=== PATIENT | female | born 1990 | race Caucasian/White ===

== ENCOUNTER 2023-02-12 16:00 | Emergency (ER) | payer MEDICAID ==
[2023-02-12 18:10] LABS: Appearance Cloudy (Clear); Bacteria Many /HPF (None Seen); Bilirubin Negative (Negative); Blood Small (Negative); Epithelial Cells None Seen /HPF (None Seen); Glucose, Urine Negative (Negative); Ketones Negative (Negative); Leukocyte Esterase Small (Negative); Nitrite Positive (Negative); Protein,Urine Dip 100 (Negative); RBC 0-2 /HPF (0-5); WBC 21-50 /HPF (0-5)
[2023-02-12 18:11] LABS: ADD URINE CULTURE? YES (NO)
[2023-02-12] MEDS ORDERED: Rocephin 1000 MG INJ IM ONE (18:27)
[2023-02-12] MEDS ORDERED: TYLENOL 325 MG PO STA (18:27)
[2023-02-12 18:29] LABS: Group A Strep NOT DETECTED (NEGATIVE)
[2023-02-12 18:41] LABS: INFLUENZA A NEGATIVE (NEGATIVE); INFLUENZA B NEGATIVE (NEGATIVE); RESPIRATORY SYNCTIAL VIRUS NEGATIVE (NEGATIVE); SARS-CoV-2 Xpert Express NEGATIVE (NEGATIVE)
[2023-02-12] MEDS ORDERED: TYLENOL 325 MG ONE (18:42)
[2023-02-12] MEDS ORDERED: Rocephin 1000 MG INJ ONE (18:42)
[2023-02-12] MEDS ORDERED: XYLOCAINE 1% HCL 20 ML MDV ONE (18:44)
[2023-02-12 19:02] VITALS: O2SAT 96
--- NOTE | 2023-02-12 19:02 | ERPHSYRPT ---
- History of Present Illness Time Seen by Provider: 02/12/23 18:07 Source: patient Exam Limitations: no limitations Patient Subjective Stated Complaint: Pt reports she has had chills/bodyaches/headaches x2 days. Has been rotating tylenol and ibuprofen. Triage Nursing Assessment: Pt alert and oriented x3. No apparent respiratory distress. Ambulated to ED cot without difficulty. Skin w/p/d. Physician History: 32 years old female presented in the ER with 2 days history of low-grade fever with body aches. Denies cough congestion or difficulty breathing. No abdominal pain nausea vomiting. Denies any urinary symptoms. No known sick contact. 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 Associated Symptoms: headache, muscle aches, No denies symptoms, No cough, No nausea/vomiting, No rhinorrhea, No shortness of breath, No stiff neck Allergies/Adverse Reactions: No Known Drug Allergies Allergy (Unverified 02/12/23 17:46) Home Medications: Fluoxetine HCl [Prozac] 15 mg PO DAILY 02/12/23 [History] Mirtazapine [Remeron] 7.5 mg PO DAILY 02/12/23 [History] Trazodone HCl 50 mg PO DAILY 02/12/23 [History] hydrOXYzine pamoate [Vistaril] 50 mg PO DAILY 02/12/23 [History] Hx Tetanus, Diphtheria Vaccination/Date Given: Yes Hx Influenza Vaccination/Date Given: No Hx Pneumococcal Vaccination/Date Given: No Travel Risk - International Travel Have you traveled outside of the country in past 3 weeks: No - Coronavirus Screening Are you exhibiting any of the following symptoms?: Yes Symptoms: Fever, Headaches/Body Aches/Fatigue Close contact with a COVID-19 positive Pt in past 14-21 Days: No - Vaccine Status Have you recieved a Covid-19 vaccination: Yes 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 - Review of Systems Constitutional: Fever, Chills, Fatigue, Weakness Eyes: No Symptoms Ears, Nose, & Throat: No Symptoms Respiratory: No Symptoms Cardiac: No Symptoms Abdominal/Gastrointestinal: No Symptoms Genitourinary Symptoms: No Symptoms Musculoskeletal: Myalgias Skin: No Symptoms Neurological: Headache Psychological: No Symptoms Endocrine: No Symptoms - Past Medical History Pertinent Past Medical History: Yes Neurological History: Migraines Cardiac History: No Pertinent History Respiratory History: No Pertinent History GI Medical History: Gallbladder Disease - Past Surgical History Past Surgical History: Yes Gastrointestinal: Cholecystectomy Other Surgical History: bone marrow biopsy - Social History Smoking Status: Current every day smoker Exposure to second hand smoke: Yes Drug Use: none Patient Lives Alone: No - Female History Hx Last Menstrual Period: 02/09/23 Hx Now: No - Nursing Vital Signs Nursing Vital Signs: Initial Vital Signs Temperature 100.9 F 02/12/23 17:39 Respiratory Rate 17 02/12/23 17:39 Pain Scale Pain Intensity 7 - Physical Exam General Appearance: no apparent distress, alert Eye Exam: PERRL/EOMI ENT Exam: normal ENT inspection, no apparent trauma, hearing grossly normal Neck Exam: normal inspection, non-tender, supple, full range of motion Respiratory Exam: normal breath sounds, lungs clear Cardiovascular/Chest Exam: normal heart sounds, regular rate/rhythm Gastrointestinal/Abdominal Exam: soft, non tender, no distention, no mass, no guarding, No tenderness Extremity Exam: non-tender, normal range of motion, normal inspection Neurologic Exam: alert, oriented x 3, cooperative, 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, normal mood/affect, sensation nml, No motor deficits Skin Exam: normal color SpO2 Interpretation: normal SpO2: 96 O2 Delivery: Room Air Ordered Tests: Active Orders 24 hr Category Date Time Status CULTURE,URINE Stat Lab 02/12/23 17:35 Received UA W/RFX UR CULTURE Stat Lab 02/12/23 17:35 Completed Medication Summary Discontinued Medications Generic Name Dose Route Start Last Admin Trade Name Tiffany PRN Reason Stop Dose Admin Acetaminophen 975 mg 02/12/23 18:27 02/12/23 18:45 Acetaminophen 325 Mg Tablet PO 02/12/23 18:28 975 mg STAT STA Administration Acetaminophen Confirm 02/12/23 18:42 Acetaminophen 325 Mg Tablet Administered 02/12/23 18:43 Dose 975 mg .ROUTE .STK-MED ONE Ceftriaxone Sodium 1,000 mg 02/12/23 18:27 02/12/23 18:45 Ceftriaxone Sodium 1000 Mg Inj Vial IM 02/12/23 18:28 1,000 mg STAT ONE Administration Ceftriaxone Sodium Confirm 02/12/23 18:42 Ceftriaxone Sodium 1000 Mg Inj Vial Administered 02/12/23 18:43 Dose 1,000 mg .ROUTE .STK-MED ONE Lidocaine HCl Confirm 02/12/23 18:44 Lidocaine Hcl 1% 20 Ml Mdv 20 Ml Ml Administered 02/12/23 18:45 Dose 3 ml .ROUTE .STK-MED ONE Lab/Rad Data: Laboratory Results 02/12/23 02/12/23 Range/Units 17:35 17:35 Urine Color Yellow (Yellow) Urine Appearance Cloudy A (Clear) Urine pH 6.0 (4.6-8.0) Ur Specific [place] 1.010 (1.005-1.030) Urine Protein 100 A (Negative) Urine Glucose (UA) Negative (Negative) mg/dL Urine Ketones Negative (Negative) Urine Blood Small A (Negative) Urine Nitrite Positive A (Negative) Urine Bilirubin Negative (Negative) Urine Urobilinogen 1.0 A (0.2) mg/dL Ur Leukocyte Esterase Small A (Negative) U Hyaline Cast (Auto) 11-20 (0-2) /LPF Urine Microscopic RBC 0-2 (0-5) /HPF Urine Microscopic WBC 21-50 A (0-5) /HPF Ur Epithelial Cells None Seen (None Seen) /HPF Urine Bacteria Many A (None Seen) /HPF Urine Culture Reflexed YES (NO) Influenza Type A Ag NEGATIVE (NEGATIVE) Influenza Type B Ag NEGATIVE (NEGATIVE) RSV (PCR) NEGATIVE (NEGATIVE) SARS-CoV-2 (PCR) NEGATIVE (NEGATIVE) Group A Strep Antibody NOT DETECTED (NEGATIVE) - Progress Progress: improved Progress Note: 02/12/23 18:59 32 years old is evaluated for fever chills, headache/body aches for couple of days, partial relief with [id number] medications. No other systemic symptoms. Patient has a negative strep flu RSV/COVID. Urinalysis is positive for nitrites and leukocyte esterase. Given an dose of Rocephin IM and oral Tylenol for fever. We will continue with Bactrim to go home and outpatient follow-up recommended. It is possible that she has a combination of viral syndrome causing nonspecific symptoms and does have UTI as well, does not have any abdominal/suprapubic/CVA tenderness. And patient has no UTI symptoms otherwise. Discussed signs symptoms of worsening needing return to ER which she seems understanding Medical Desision Making - Discussion of managment Reviewed:: Test results, Need for additional workup Agreed on:: Treatment plan, need for follow-up - Diagnostic Testing Diagnostic test were ordered, analyzed, and reviewed by me: Yes - Risk of complications The pt has a mod risk of morbidity or mortality based on: Need for prescription drug management - Departure Departure Disposition: Home Clinical Impression: Acute UTI, Viral syndrome Condition: Stable Critical Care Time: No Referrals: DOCTOR,NO FAMILY [Primary Care Provider] - Follow up/PCP as directed Instructions: Fever, Adult (DC) Additional Instructions: Take Tylenol/ibuprofen alternate for fever greater than 100.4 every 4 hour as needed. Follow-up with primary care for reevaluation. Return to ER for any worsening. Prescriptions: Smz/Tmp Ds Tablet [Bactrim Ds Tablet] 1 udtab PO BID #14 tablet
[2023-02-12 19:13] VITALS: BP 136/99; PULSE 100
== END 2023-02-12 19:13 | disposition home or self-care (01) ==
LOC: ED 16:00
DX: N39.0 Urinary tract infection, site not specified (principal); B34.9 Viral infection, unspecified; R50.9 Fever, unspecified; M79.10 Myalgia, unspecified site; Z79.899 Other long term (current) drug therapy; Z72.0 Tobacco use
CPT/HCPCS: 0241U; 81001; 87077; 87086; 87186; 87651; 96372; 99283; J0696; A9270-GY

== ENCOUNTER 2023-07-31 20:14 | Emergency (ER) | payer OTHER ==
[2023-07-31 20:23] VITALS: TEMP 97.5
--- NOTE | 2023-07-31 21:00 | ERPHSYRPT ---
- History of Present Illness Time Seen by Provider: 07/31/23 20:36 Source: patient Exam Limitations: no limitations Patient Subjective Stated Complaint: bilat lower ext discomfort with some swelling Triage Nursing Assessment: pt brought back in wheelchair, mom at bedside. Pt c/o bilat lower ext swelling which started yesterday. Pt has some trace edema to bilat lower ext, non-pitting, bilat pedal pulses present. Pt had pulmonary function test done today and pt got concerned and decided to come in because they told her the leg swelling could be due to CHF. Lungs slightly coarse to upper lobes ant. Heart tones reg. Physician History: Pt states she has had swollen legs and ankles for the past 2 days and cough & dyspnea for years. Pt denies chest pain, fever, chills, abdominal pain, vomiting. Allergies/Adverse Reactions: No Known Drug Allergies Allergy (Verified 07/31/23 20:37) Home Medications: Fluoxetine HCl [Prozac] 20 mg PO DAILY 02/12/23 [History] Trazodone HCl 50 mg [Desyrel 50 mg] 1 tab PO HS 07/31/23 [History] hydrOXYzine pamoate [Vistaril] 50 mg PO Q6HPRN PRN 07/31/23 [History] Hx Tetanus, Diphtheria Vaccination/Date Given: Yes Hx Influenza Vaccination/Date Given: No Hx Pneumococcal Vaccination/Date Given: No Immunizations Up to Date: No Travel Risk - International Travel Have you traveled outside of the country in past 3 weeks: No - Coronavirus Screening Are you exhibiting any of the following symptoms?: No Close contact with a COVID-19 positive Pt in past 14-21 Days: No - Vaccine Status Have you recieved a Covid-19 vaccination: Yes 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 - Review of Systems Constitutional: No Fever, No Chills Respiratory: Cough (FOR YEARS), Dyspnea (FOR YEARS) Cardiac: No Chest Pain Abdominal/Gastrointestinal: No Abdominal Pain Skin: No Rash Neurological: No Headache - Past Medical History Pertinent Past Medical History: Yes Neurological History: Migraines ENT History: No Pertinent History Cardiac History: High Cholesterol Respiratory History: Bronchitis, COPD Endocrine Medical History: No Pertinent History Musculoskeletal History: Fractures GI Medical History: Gallbladder Disease History: No Pertinent History Psycho-Social History: Depression Female Reproductive Disorders: Other Other Medical History: pre cancerous cervical cells. fx elbow - Past Surgical History Past Surgical History: Yes Neuro Surgical History: No Pertinent History Cardiac: No Pertinent History Respiratory: No Pertinent History Gastrointestinal: Cholecystectomy Female Surgical History: Other Other Surgical History: bone marrow biopsy, LEEP procedure - Social History Smoking Status: Current every day smoker How long have you smoked: 17 yrs Exposure to second hand smoke: Yes Drug Use: none Patient Lives Alone: No - Female History Hx Last Menstrual Period: 07/14/23 Hx Now: No - Nursing Vital Signs Nursing Vital Signs: Initial Vital Signs Temperature 97.5 F 07/31/23 20:20 Pulse Rate 96 H 07/31/23 20:20 Respiratory Rate 20 07/31/23 20:20 Blood Pressure 118/82 07/31/23 20:20 O2 Sat by Pulse Oximetry 97 07/31/23 20:20 Pain Scale Pain Intensity 2 - Physical Exam General Appearance: alert Eyes, Ears, Nose, Throat Exam: TMs normal, pharynx normal, moist mucous membranes Neck Exam: normal inspection Cardiovascular/Respiratory Exam: heart sounds normal, rhonchi (posterior bases), wheezing (posterior bases) Back Exam: normal inspection Hips Exam: bilateral: normal range of motion Legs Exam: bilateral leg: normal range of motion, swelling (mild) Knees Exam: bilateral knee: normal range of motion Ankle Exam: bilateral ankle: normal range of motion, swelling (mild) Foot Exam: bilateral foot: normal range of motion Neuro/Tendon Exam: normal sensation, normal motor functions Mental Status Exam: alert, cooperative Skin Exam: warm, dry SpO2 Interpretation: normal SpO2: 97 O2 Delivery: Room Air - Course Nursing assessment & vital signs reviewed: Yes EKG Interpreted by Me: RATE (91), Sinus Rhythm, NORMAL AXIS, NORMAL INTERVALS, Other (QTc = 481) - CT Exams Chest CT Interpretation: Tele-radiologist Report (No significant abnormality on CT- Chest.) - Radiology Ultrasound Exam Venous Lower Extremity Ultrasound: Other (manometer technician report: no DVT bilaterally) Ordered Tests: Active Orders 24 hr Category Date Time Status Payroll Secretary STAT Care 07/31/23 20:58 Active EKG-ER Only STAT Care 07/31/23 20:56 Active IV Insertion STAT Care 07/31/23 22:34 Active CHEST WITH CONTRAST [CT] Stat Exams 07/31/23 20:58 Completed VENOUS BILATERAL EXTREMITY [US] Stat Exams 07/31/23 20:53 Taken CBC W DIFF Stat Lab 07/31/23 21:05 Completed CMP Stat Lab 07/31/23 21:05 Completed HCG QUALITATIVE, SERUM Stat Lab 07/31/23 21:05 Completed MAGNESIUM Stat Lab 07/31/23 21:05 Completed NT PRO BNPII Stat Lab 07/31/23 21:05 Completed TROPONIN Q4H Lab 07/31/23 21:05 Completed TROPONIN Q4H Lab 08/01/23 01:00 Ordered TROPONIN Q4H Lab 08/01/23 05:00 Ordered Respiratory Therapy Assessment DAILY RT 07/31/23 21:33 Active Medication Summary Discontinued Medications Generic Name Dose Route Start Last Admin Trade Name Freq PRN Reason Stop Dose Admin Albuterol Sulfate 2.5 mg 07/31/23 21:01 07/31/23 22:02 Albuterol Sulfate 2.5 Mg/3 Ml Neb IH 07/31/23 21:02 2.5 mg STAT ONE Administration Albuterol Sulfate Confirm 07/31/23 21:34 Albuterol Sulfate 2.5 Mg/3 Ml Neb Administered 07/31/23 21:35 Dose 2.5 mg IH .STK-MED ONE Lab/Rad Data: Laboratory Result Diagrams 07/31/23 21:05 07/31/23 21:05 Laboratory Results 07/31/23 07/31/23 07/31/23 Range/Units 21:05 21:05 21:05 WBC (4.0-10.5) x10^3/uL RBC (4.1-5.4) x10^6/uL Hgb (12.0-16.0) g/dL Hct (35-47) % MCV (78-100) fL MCH (26-32) pg MCHC (32-36) g/dL RDW (11.5-14.0) % Plt Count (150-450) x10^3/uL MPV (7.5-11.0) fL Gran % (36.0-66.0) % Immature Gran % (Auto) (0.00-0.4) % Nucleat RBC Rel Count (0.00-0.1) % Eos # (Auto) (0-0.5) x10^3/uL Immature Gran # (Auto) (0.00-0.03) x10^3u/L Absolute Lymphs (auto) (1.0-4.6) x10^3/uL Absolute Monos (auto) (0.0-1.3) x10^3/uL Absolute Nucleated RBC (0.00-0.01) x10^3u/L Lymphocytes % (24.0-44.0) % Monocytes % (0.0-12.0) % Eosinophils % (0.00-5.0) % Basophils % (0.0-0.4) % Absolute Granulocytes (1.4-6.9) x10^3/uL Basophils # (0-0.4) x10^3/uL Sodium 136 L (137-145) mmol/L Potassium 3.6 (3.5-5.1) mmol/L Chloride 104 (98-107) mmol/L Carbon Dioxide 22 (22-30) mmol/L Anion Gap 13.4 (5-15) MEQ/L BUN 6 L (7-17) mg/dL Creatinine 0.67 (0.52-1.04) mg/dL Estimated GFR 120.5 ML/MIN Glucose 123 H (74-106) mg/dL Calcium 8.5 (8.4-10.2) mg/dL Magnesium 2.2 (1.6-2.3) mg/dL Total Bilirubin 0.20 (0.2-1.3) mg/dL AST 47 H (14-36) U/L ALT 46 H (0-35) U/L Alkaline Phosphatase 80 (38-126) U/L Troponin I < 0.012 (0.000-0.034) ng/mL NT-Pro-B Natriuret Pep 203 (<300) pg/mL Serum Total Protein 5.5 L (6.3-8.2) g/dL Albumin 3.1 L (3.5-5.0) g/dL Serum HCG, Qual NEGATIVE (NEGATIVE) 07/31/23 Range/Units 21:05 WBC 7.8 (4.0-10.5) x10^3/uL RBC 4.56 (4.1-5.4) x10^6/uL Hgb 12.5 (12.0-16.0) g/dL Hct 39.8 (35-47) % MCV 87.3 (78-100) fL MCH 27.4 (26-32) pg MCHC 31.4 L (32-36) g/dL RDW 13.2 (11.5-14.0) % Plt Count 314 (150-450) x10^3/uL MPV 9.2 (7.5-11.0) fL Gran % 48.4 (36.0-66.0) % Immature Gran % (Auto) 0.3 (0.00-0.4) % Nucleat RBC Rel Count 0.0 (0.00-0.1) % Eos # (Auto) 0.11 (0-0.5) x10^3/uL Immature Gran # (Auto) 0.02 (0.00-0.03) x10^3u/L Absolute Lymphs (auto) 3.29 (1.0-4.6) x10^3/uL Absolute Monos (auto) 0.56 (0.0-1.3) x10^3/uL Absolute Nucleated RBC 0.00 (0.00-0.01) x10^3u/L Lymphocytes % 42.2 (24.0-44.0) % Monocytes % 7.2 (0.0-12.0) % Eosinophils % 1.4 (0.00-5.0) % Basophils % 0.5 (0.0-0.4) % Absolute Granulocytes 3.77 (1.4-6.9) x10^3/uL Basophils # 0.04 (0-0.4) x10^3/uL Sodium (137-145) mmol/L Potassium (3.5-5.1) mmol/L Chloride (98-107) mmol/L Carbon Dioxide (22-30) mmol/L Anion Gap (5-15) MEQ/L BUN (7-17) mg/dL Creatinine (0.52-1.04) mg/dL Estimated GFR ML/MIN Glucose (74-106) mg/dL Calcium (8.4-10.2) mg/dL Magnesium (1.6-2.3) mg/dL Total Bilirubin (0.2-1.3) mg/dL AST (14-36) U/L ALT (0-35) U/L Alkaline Phosphatase (38-126) U/L Troponin I (0.000-0.034) ng/mL NT-Pro-B Natriuret Pep (<300) pg/mL Serum Total Protein (6.3-8.2) g/dL Albumin (3.5-5.0) g/dL Serum HCG, Qual (NEGATIVE) - Progress Progress: unchanged Counseled pt/family regarding: lab results, diagnosis, rad results Medical Desision Making - Diagnostic Testing Diagnostic test were ordered, analyzed, and reviewed by me: Yes Radiological Interpretation: Discussed w/ radiologist - Departure Departure Disposition: Home Clinical Impression: dependent edema of legs, Dyspnea, Bronchitis Condition: Stable Critical Care Time: No Referrals: JESE IRIZARRY FNP [Primary Care Provider] - Follow up/PCP as directed Instructions: Dependent Edema (DC), Acute Bronchitis, Adult (DC) Additional Instructions: Follow up with private doctor tomorrow. Forms: Work/School Release Form Prescriptions: Azithromycin 250 mg [Zithromax 250 MG TABLET] 250 mg PO ZPACK #6 tablet
[2023-07-31] MEDS ORDERED: PROVENTIL 2.5 MG/3 ML NEB IH ONE ×2 (21:01→21:34)
[2023-07-31 21:11] LABS: Absolute Neutrophil Ct (ANC) 3.77 x10^3/uL (1.4-6.9); BASOPHIL % 0.5 % (0.0-0.4); Basophil (Absolute #) 0.04 x10^3/uL (0-0.4); Eosinophil % 1.4 % (0.00-5.0); Eosinophil (Absolute #) 0.11 x10^3/uL (0-0.5); Hematocrit 39.8 % (35-47); Hemoglobin 12.5 g/dL (12.0-16.0); IMMATURE GRAN # 0.02 x10^3u/L (0.00-0.03); IMMATURE GRAN % 0.3 % (0.00-0.4); Lymphocyte (Absolute #) 3.29 x10^3/uL (1.0-4.6); Lymphocytes % 42.2 % (24.0-44.0); Mean Cell Volume 87.3 fL (78-100); Mean Corpuscular Hemoglobin 27.4 pg (26-32); Mean Corpuscular Hgb Concent. 31.4 g/dL (32-36); Mean Platelet Volume 9.2 fL (7.5-11.0); Monocyte (Absolute #) 0.56 x10^3/uL (0.0-1.3); Monocytes % 7.2 % (0.0-12.0); Neutrophil % 48.4 % (36.0-66.0); Platelet Count 314 x10^3/uL (150-450); Red Blood Count 4.56 x10^6/uL (4.1-5.4); Red Cell Distribution Width 13.2 % (11.5-14.0); White Blood Count 7.8 x10^3/uL (4.0-10.5)
[2023-07-31 21:26] LABS: HCG SERUM TEST NEGATIVE (NEGATIVE)
[2023-07-31 21:38] LABS: ALBUMIN 3.1 g/dL (3.5-5.0); ANION GAP 13.4 MEQ/L (5-15); BILIRUBIN,TOTAL 0.2 mg/dL (0.2-1.3); Calcium 8.5 mg/dL (8.4-10.2); Creatinine 1 0.67 mg/dL (0.52-1.04); EST GLOMERULAR FILTRATION RATE 120.5 ML/MIN; MAGNESIUM 2.2 mg/dL (1.6-2.3); Potassium 3.6 mmol/L (3.5-5.1); Total Protein 5.5 g/dL (6.3-8.2)
[2023-07-31 23:08] VITALS: BP 143/89; PULSE 100; RESP 21
--- NOTE | 2023-07-31 23:24 | XRAY ---
CLINICAL HISTORY:SOA r/o PE COMPARISON:None TECHNIQUE:Contiguous 3.[address] images of the chest were acquired with contrast. Coronal and sagittal reconstructions were obtained. FINDINGS: The scanned pulmonary parenchyma shows no definite consolidative lesions. No free or encysted pleural effusion. Heart size is normal, and there is no pericardial effusion. There is no contrast in the pulmonary arteries, thus they cannot be evaluated for thrombosis. No pathologically enlarged mediastinal, hilar or axillary lymph node identified. The thoracic spine appears normal. There is no definite mass lesion in the chest wall. Scanned upper abdomen is unremarkable. IMPRESSION: No significant abnormality in CT chest Electronically Signed by: Ida Echols MD. (07/31/2023 22:22:50 DICTATING MACHINE TYPIST)
[2023-07-31] MEDS ORDERED: Zithromax 250 MG TABLET PO ONE (23:34)
[2023-07-31 23:36] VITALS: O2SAT 97
[2023-07-31] MEDS ORDERED: Zithromax 250 MG TABLET ONE (23:37)
--- NOTE | 2023-08-01 08:54 | XRAY ---
Indication: Bilateral leg swelling. Two-dimensional sonogram and color Doppler imaging of the major venous vessels of the left and right leg performed. Comparison: None No thrombus seen in the examined deep venous vessels of the left and right leg including greater saphenous vein. Veins demonstrate normal compressibility. Venous waveforms are normal with and without augmentation. Impression: Left and right legs negative for DVT. Comment: Preliminary report was given.
== END 2023-07-31 23:43 | disposition home or self-care (01) ==
LOC: ED 20:14
DX: R60.0 Localized edema (principal); R06.00 Dyspnea, unspecified; J40 Bronchitis, not specified as acute or chronic; R05.3 Chronic cough; E78.5 Hyperlipidemia, unspecified; Z79.899 Other long term (current) drug therapy; Z72.0 Tobacco use
CPT/HCPCS: 36000; 36415; 71260; 80053; 83735; 83880; 84484; 84703; 85025; 93005; 93041; 93970; 94640; 99284; J7609; A9270-GY

== ENCOUNTER 2023-10-28 05:38 | Emergency (ER) | payer OTHER ==
--- NOTE | 2023-10-28 06:13 | ERPHSYRPT ---
- History of Present Illness Source: family Hx Tetanus, Diphtheria Vaccination/Date Given: Yes Hx Influenza Vaccination/Date Given: No Hx Pneumococcal Vaccination/Date Given: No <STACY MAYERS - Last Filed: 10/28/23 07:50> - History of Present Illness Source: patient, family Exam Limitations: clinical condition Timing/Duration: today Severity of Symptoms-Max: moderate Severity of Symptoms-Current: moderate Context related to: living circumstances Suicidal thoughts: accidental, ingestion Associated Symptoms: depressed Previous symptoms: different symptoms, recently treated <OFE KAHN - Last Filed: 10/28/23 09:02> - History of Present Illness Time Seen by Provider: 10/28/23 06:13 Physician History: 33 years old female with past medical history of depression, insomnia. The patient is brought by her girlfriend to the emergency room because the patient accidentally overdosed on Wellbutrin tablets, 150 extended release about 15 to 20 tablets. The patient states that this medication was prescribed for her a month ago for her depression. She only used it for 2 weeks and then she quit taking it. This morning she woke up to take her regular medications and then accidentally she took 15 to 20 tablets of Wellbutrin. Both the patient and her girlfriend denies any harm/suicidal action. Her girlfriend called poison control and they were advised to come to the emergency room. At present the patient is having difficulty finding her words she has slurred and stuttering speech. It takes her a while to come out with a word. (STACY MAYERS) Risks/benefits of testing CBC, HCG, Acepo, ASA, ETOH, IVF Tx Ativan , Transfer to definitive care, all discussed with pt and significant other and they wish to proceed. Results discussed with Pt and signif. Other. (OFE KAHN) Allergies/Adverse Reactions: No Known Drug Allergies Allergy (Verified 10/28/23 06:16) Home Medications: Fluoxetine HCl [Prozac] 20 mg PO DAILY 02/12/23 [History] hydrOXYzine pamoate [Vistaril] 50 mg PO Q6HPRN PRN 07/31/23 [History] Omeprazole 20 mg PO DAILY 10/28/23 [History] Travel Risk - Vaccine Status Have you recieved a Covid-19 vaccination: Yes [employer]: [employer] - Vaccination Dates Date of 2cond Vaccination (if applicable): . <TIMO MAYERSCHELSIE - Last Filed: 10/28/23 07:50> - Past Medical History Pertinent Past Medical History: Yes Neurological History: Migraines ENT History: No Pertinent History Cardiac History: High Cholesterol Respiratory History: Bronchitis, COPD Endocrine Medical History: No Pertinent History Musculoskeletal History: Fractures GI Medical History: Gallbladder Disease History: No Pertinent History Psycho-Social History: Depression Female Reproductive Disorders: Other Other Medical History: pre cancerous cervical cells. fx elbow - Past Surgical History Past Surgical History: Yes Neuro Surgical History: No Pertinent History Cardiac: No Pertinent History Respiratory: No Pertinent History Gastrointestinal: Cholecystectomy Female Surgical History: Other Other Surgical History: bone marrow biopsy, LEEP procedure - Social History Smoking Status: Current every day smoker How long have you smoked: 17 yrs Exposure to second hand smoke: Yes Drug Use: none Patient Lives Alone: No <TEVINSheSOUMYALAKE - Last Filed: 10/28/23 07:50> - Past Surgical History Genitourinary: No Pertinent History Musculoskeletal: No Pertinent History - Female History Hx Now: No <OFE KAHN - Last Filed: 10/28/23 09:02> - Review of Systems Constitutional: No Fever, No Chills Eyes: No Symptoms Ears, Nose, & Throat: No Symptoms Respiratory: No Cough, No Dyspnea Cardiac: No Chest Pain, No Edema, No Syncope Abdominal/Gastrointestinal: No Abdominal Pain, No Nausea, No Vomiting, No Diarrhea Genitourinary Symptoms: No Dysuria Musculoskeletal: No Back Pain, No Neck Pain Skin: No Rash Neurological: No Dizziness, No Focal Weakness, No Sensory Changes Psychological: No Symptoms, Anxiety, Other (Per patient she accidentally overdosed on Wellbutrin 150 mg extended release x 15 to 20 tablets.) Endocrine: No Symptoms All Other Systems: Reviewed and Negative <TEVINSheSOUMYALAKE - Last Filed: 10/28/23 07:50> - Physical Exam General Appearance: no apparent distress Eyes, Ears, Nose, Throat Exam: normal ENT inspection, moist mucous membranes Neck Exam: normal inspection, non-tender, supple Respiratory Exam: normal breath sounds, lungs clear, No respiratory distress Cardiovascular Exam: regular rate/rhythm, No edema Gastrointestinal/Abdominal Exam: soft, No tenderness, No distention Extremities Exam: normal inspection, normal range of motion, No evidence of injury, No edema Current Suicidality: denies suicide plan Neurological Exam: 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, 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, 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, oriented x 3, depressed affect Appearance: appropriate appearance Behavior/Eye Contact/Speech: alert & cooperative, good eye contact, decreased rate of speech (The patient has a slurred, stuttering speech.) Thoughts/Hallucinations: no apparent hallucination Skin Exam: normal color, warm, dry, No rash <STACY MAYERS - Last Filed: 10/28/23 07:50> - Physical Exam Respiratory Exam: airway intact Peripheral Pulses: carotid (R): 2+, carotid (L): 2+, femoral (R): 2+, femoral (L): 2+, dorsalis-pedis (R): 2+, dorsalis-pedis (L): 2+ Current Suicidality: denies suicide plan Neurological Exam: depressed affect SpO2 Interpretation: normal SpO2: 99 O2 Delivery: Room Air <OFE KAHN - Last Filed: 10/28/23 09:02> - Nursing Vital Signs Nursing Vital Signs: Initial Vital Signs Temperature 98.5 F 10/28/23 05:48 Pulse Rate 98 H 10/28/23 05:48 Respiratory Rate 18 10/28/23 05:48 Blood Pressure 151/112 10/28/23 05:48 O2 Sat by Pulse Oximetry 99 10/28/23 05:48 Pain Scale Pain Intensity 4 - Course EKG Interpreted by Me: RATE (94), Sinus Rhythm, Other (As needed Tylenol 236, QT interval 381, borderline prolonged QTc 476.) <STACY MAYERS - Last Filed: 10/28/23 07:50> - Course Nursing assessment & vital signs reviewed: Yes EKG Interpreted by Me: prolonged QT interval, Non-specific ST Changes <OFE KAHN - Last Filed: 10/28/23 09:02> Ordered Tests: Active Orders 24 hr Category Date Time Status Clean Catch Urine Specimen STAT Care 10/28/23 06:20 Active EKG-ER Only STAT Care 10/28/23 06:20 Active IV Insertion STAT Care 10/28/23 06:03 Active ACETAMINOPHEN Stat Lab 10/28/23 06:10 Completed CBC W DIFF Stat Lab 10/28/23 06:10 Completed CK-Creatinine Phosphokinase Stat Lab 10/28/23 06:10 Completed CMP Stat Lab 10/28/23 06:10 Completed ETHYL ALCOHOL Stat Lab 10/28/23 06:10 Completed HCG QUALITATIVE, SERUM Stat Lab 10/28/23 06:10 Completed MAGNESIUM Stat Lab 10/28/23 06:10 Completed SALICYLATE Stat Lab 10/28/23 06:10 Completed Urine Triage Profile Stat Lab 10/28/23 07:13 Completed Medication Summary Generic Name Dose Route Start Last Admin Trade Name Freq PRN Reason Stop Dose Admin Sodium Chloride 1,000 mls @ 500 mls/hr 10/28/23 07:06 10/28/23 08:56 Sodium Chloride 0.9% 1000 Ml IV 10/28/23 09:05 Infused .Q2H STA Infusion Discontinued Medications Generic Name Dose Route Start Last Admin Trade Name Freq PRN Reason Stop Dose Admin Sodium Chloride Confirm 10/28/23 06:26 Sodium Chloride 0.9% 1000 Ml Administered 10/28/23 06:27 Dose 1,000 mls @ ud .ROUTE .STK-MED ONE Lorazepam Confirm 10/28/23 06:26 Lorazepam 2 Mg/1 Ml 2 Mg Vial Administered 10/28/23 06:27 Dose 2 mg .ROUTE .STK-MED ONE Lorazepam 2 mg 10/28/23 07:06 10/28/23 06:32 Lorazepam 2 Mg/1 Ml 2 Mg Vial IV 10/28/23 07:07 2 mg STAT ONE Administration Lorazepam 1 mg 10/28/23 07:30 10/28/23 07:33 Lorazepam 1 Mg Tablet PO 10/28/23 07:31 1 mg STAT ONE Administration Lorazepam Confirm 10/28/23 07:31 Lorazepam 1 Mg Tablet Administered 10/28/23 07:32 Dose 1 mg .ROUTE .STK-MED ONE Lab/Rad Data: Laboratory Result Diagrams 10/28/23 06:10 10/28/23 06:10 Laboratory Results 10/28/23 10/28/23 10/28/23 Range/Units 07:13 06:10 06:10 WBC (4.0-10.5) x10^3/uL RBC (4.1-5.4) x10^6/uL Hgb (12.0-16.0) g/dL Hct (35-47) % MCV (78-100) fL MCH (26-32) pg MCHC (32-36) g/dL RDW (11.5-14.0) % Plt Count (150-450) x10^3/uL MPV (7.5-11.0) fL Gran % (36.0-66.0) % Immature Gran % (Auto) (0.00-0.4) % Nucleat RBC Rel Count (0.00-0.1) % Eos # (Auto) (0-0.5) x10^3/uL Immature Gran # (Auto) (0.00-0.03) x10^3u/L Absolute Lymphs (auto) (1.0-4.6) x10^3/uL Absolute Monos (auto) (0.0-1.3) x10^3/uL Absolute Nucleated RBC (0.00-0.01) x10^3u/L Lymphocytes % (24.0-44.0) % Monocytes % (0.0-12.0) % Eosinophils % (0.00-5.0) % Basophils % (0.0-0.4) % Absolute Granulocytes (1.4-6.9) x10^3/uL Basophils # (0-0.4) x10^3/uL Sodium 135 L (137-145) mmol/L Potassium 3.9 (3.5-5.1) mmol/L Chloride 103 (98-107) mmol/L Carbon Dioxide 28 (22-30) mmol/L Anion Gap 7.6 (5-15) MEQ/L BUN 3 L (7-17) mg/dL Creatinine 0.70 (0.52-1.04) mg/dL Estimated GFR 118.5 ML/MIN Glucose 99 (74-106) mg/dL Calcium 9.6 (8.4-10.2) mg/dL Magnesium 2.2 (1.6-2.3) mg/dL Total Bilirubin 0.50 (0.2-1.3) mg/dL AST 44 H (14-36) U/L ALT 62 H (0-35) U/L Alkaline Phosphatase 72 (38-126) U/L Creatine Kinase 80 (30-135) U/L Serum Total Protein 6.9 (6.3-8.2) g/dL Albumin 4.0 (3.5-5.0) g/dL Serum HCG, Qual NEGATIVE (NEGATIVE) Salicylates < 1.0 L (2-20) mg/dL Urine Opiates Level NEGATIVE (NEGATIVE) Ur Methadone NEGATIVE (NEGATIVE) Acetaminophen < 10 L (10-30) ug/ml Urine Barbiturates NEGATIVE (NEGATIVE) Ur Phencyclidine (PCP) NEGATIVE (NEGATIVE) Urine Amphetamine NEGATIVE (NEGATIVE) U Benzodiazepine Level NEGATIVE (NEGATIVE) Urine Cocaine NEGATIVE (NEGATIVE) Urine Marijuana (THC) NEGATIVE (NEGATIVE) Ethyl Alcohol < 10 (0-10) mg/dL 10/28/23 Range/Units 06:10 WBC 9.6 (4.0-10.5) x10^3/uL RBC 5.64 H (4.1-5.4) x10^6/uL Hgb 15.3 (12.0-16.0) g/dL Hct 46.7 (35-47) % MCV 82.8 (78-100) fL MCH 27.1 (26-32) pg MCHC 32.8 (32-36) g/dL RDW 13.0 (11.5-14.0) % Plt Count 397 (150-450) x10^3/uL MPV 9.2 (7.5-11.0) fL Gran % 57.0 (36.0-66.0) % Immature Gran % (Auto) 0.3 (0.00-0.4) % Nucleat RBC Rel Count 0.0 (0.00-0.1) % Eos # (Auto) 0.11 (0-0.5) x10^3/uL Immature Gran # (Auto) 0.03 (0.00-0.03) x10^3u/L Absolute Lymphs (auto) 3.42 (1.0-4.6) x10^3/uL Absolute Monos (auto) 0.54 (0.0-1.3) x10^3/uL Absolute Nucleated RBC 0.00 (0.00-0.01) x10^3u/L Lymphocytes % 35.6 (24.0-44.0) % Monocytes % 5.6 (0.0-12.0) % Eosinophils % 1.1 (0.00-5.0) % Basophils % 0.4 (0.0-0.4) % Absolute Granulocytes 5.48 (1.4-6.9) x10^3/uL Basophils # 0.04 (0-0.4) x10^3/uL Sodium (137-145) mmol/L Potassium (3.5-5.1) mmol/L Chloride (98-107) mmol/L Carbon Dioxide (22-30) mmol/L Anion Gap (5-15) MEQ/L BUN (7-17) mg/dL Creatinine (0.52-1.04) mg/dL Estimated GFR ML/MIN Glucose (74-106) mg/dL Calcium (8.4-10.2) mg/dL Magnesium (1.6-2.3) mg/dL Total Bilirubin (0.2-1.3) mg/dL AST (14-36) U/L ALT (0-35) U/L Alkaline Phosphatase (38-126) U/L Creatine Kinase (30-135) U/L Serum Total Protein (6.3-8.2) g/dL Albumin (3.5-5.0) g/dL Serum HCG, Qual (NEGATIVE) Salicylates (2-20) mg/dL Urine Opiates Level (NEGATIVE) Ur Methadone (NEGATIVE) Acetaminophen (10-30) ug/ml Urine Barbiturates (NEGATIVE) Ur Phencyclidine (PCP) (NEGATIVE) Urine Amphetamine (NEGATIVE) U Benzodiazepine Level (NEGATIVE) Urine Cocaine (NEGATIVE) Urine Marijuana (THC) (NEGATIVE) Ethyl Alcohol (0-10) mg/dL <STACY MAYERS - Last Filed: 10/28/23 07:50> - Progress Progress: improved, re-examined Discussed with Dr.: Other (this was discussed with Dr. Alford at [facility] and with the insensivist at [place] who accepted , but awaiting bed. THere was also consultation with [facility]) Counseled pt/family regarding: lab results, diagnosis, need for follow-up, rad results <OFE KAHN - Last Filed: 10/28/23 09:02> - Progress Progress Note: 10/28/23 06:20 6:05 AM 33 years old female who has past medical history of depression, insomnia. The patient is brought by her girlfriend to the emergency room because she accidentally overdosed on Wellbutrin, 150 mg extended release. The patient was prescribed this medication a month ago she only took it for 2 weeks. This morning she woke up she tried to get her oral medications when she accidentally grabbed 15 to 20 tablets of her Wellbutrin and took them?. The patient denies harming herself or attempting suicide by overdosing on Wellbutrin. Her girlfriend called poison control and they were advised to come to the emergency room At present her speech is affected is kind of slurred stuttering speech. Emergency room course and medical decision making: Nurses called the poison control they fax us some treatment guidelines. If the patient gets seizures agitation tremor tachycardia should be treated with a MARIAA a agonist. They recommend lorazepam 1 to 4 mg IV, phenobarbital to 2.5 to 20 mg/kg IV anticipating respiratory support and or propofol loading dose 1 to 2 mg/kg followed by 20 mcg/kg/min and anticipating respiratory support 2. If the patient develops tachycardia and or agitation she should be treated with IV lorazepam, phenobarbital. At present the patient's heart rate is ranging 1 12-1 20 on the monitor she will be given Ativan 2 mg IV. Will also start IV fluid. Will check CBC, CMP, urine drug screen, alcohol level, both Tylenol and aspirin levels. Check CK and magnesium. The patient's EKG revealed a sinus rhythm at a rate of 94 bpm borderline prolon ged QT interval at 476. 10/28/2023 6:45 The case is discussed with Dr. Alford, the ER physician at [facility] in [place], they do not have the ECMO capabilities at their facility, his recommendation is finding in the workplace with ECMO Abilities. 10/28/23 07:30 The case is discussed with the singing waiter or waitress at , Dr. Huston, the patient has been accepted, but they do not have beds at present. The patient will be on the waiting list, and will call us as soon as bed is available. 10/28/23 07:43 The case will be endorsed to Dr. Kahn at the change of shift for further disposition and management. (STACY MAYERS) 10/28/23 08:05 Pt. care is being taken over at change of shift from Dr. Mayers after discussion of pending transfer , poison control advice, and introduction to pt. Ativan begun as per poison control advice. 10/28/23 08:16 10/28/23 08:16 10/28/23 08:59 Pt accepted at [place] [facility] called for transport - Pt is being sent due to potential to require higher level Intensive care monitoring and potential for interventions such as ECMO. Pt was moved to bed 2 into the intensive resuscitation area as precaution for better monitoring. She has been monitored during ER visit requiring at least 80 minutes close care and efforts in arranging [facility]. (OFE KAHN) Medical Desision Making - Independent Historian Additional History obtained from: Relative/friend - Discussion of managment Care discussed with:: specialist Reviewed:: Test results, Need for additional workup Agreed on:: Treatment plan, need for follow-up, decision to admit Will see patient: in hospital - Diagnostic Testing Diagnostic test were ordered, analyzed, and reviewed by me: Yes Radiological Interpretation: Reviewed by me - Risk of complications The pt has a mod risk of morbidity or mortality based on: Need for prescription drug management The pt has a high risk of morbidity or mortality based on: Decision regarding hospitilization or escalation of hosp level of care <OFE KAHN - Last Filed: 10/28/23 09:02> - Departure Departure Disposition: Transfer Critical Care Time: Yes Critical Care Time(excluding separately billable procedures): Critical 75-104 mins <STACY MAYERS - Last Filed: 10/28/23 07:50> - Departure Departure Disposition: Transfer <OFE KAHN - Last Filed: 10/28/23 09:02> - Departure Clinical Impression: Overdose by ingestion Condition: Stable Referrals: JESE IRIZARRY DUPLICATOR [facility] SET UP OPERATOR [Primary Care Provider] - Follow up/PCP as directed
[2023-10-28 06:16] VITALS: TEMP 98.5
[2023-10-28 06:16] LABS: Absolute Neutrophil Ct (ANC) 5.48 x10^3/uL (1.4-6.9); BASOPHIL % 0.4 % (0.0-0.4); Basophil (Absolute #) 0.04 x10^3/uL (0-0.4); Eosinophil % 1.1 % (0.00-5.0); Eosinophil (Absolute #) 0.11 x10^3/uL (0-0.5); Hematocrit 46.7 % (35-47); Hemoglobin 15.3 g/dL (12.0-16.0); IMMATURE GRAN # 0.03 x10^3u/L (0.00-0.03); IMMATURE GRAN % 0.3 % (0.00-0.4); Lymphocyte (Absolute #) 3.42 x10^3/uL (1.0-4.6); Lymphocytes % 35.6 % (24.0-44.0); Mean Cell Volume 82.8 fL (78-100); Mean Corpuscular Hemoglobin 27.1 pg (26-32); Mean Corpuscular Hgb Concent. 32.8 g/dL (32-36); Mean Platelet Volume 9.2 fL (7.5-11.0); Monocyte (Absolute #) 0.54 x10^3/uL (0.0-1.3); Monocytes % 5.6 % (0.0-12.0); Platelet Count 397 x10^3/uL (150-450); Red Blood Count 5.64 x10^6/uL (4.1-5.4); White Blood Count 9.6 x10^3/uL (4.0-10.5)
[2023-10-28] MEDS ORDERED: Sodium Chloride 0.9% 1000 ML 1,000 ML ONE (06:26)
[2023-10-28] MEDS ORDERED: Ativan 2 MG/1 ML VIAL ONE (06:26)
[2023-10-28 06:31] LABS: ACETAMINOPHEN < 10 ug/ml (10-30); ALKALINE PHOSPHATASE 72 U/L (38-126); ANION GAP 7.6 MEQ/L (5-15); BLOOD UREA NITROGEN 3 mg/dL (7-17); CHLORIDE 103 mmol/L (98-107); CK-Creatinine Phosphokinase 80 U/L (30-135); Calcium 9.6 mg/dL (8.4-10.2); Carbon Dioxide 28 mmol/L (22-30); EST GLOMERULAR FILTRATION RATE 118.5 ML/MIN; ETHYL ALCOHOL < 10 mg/dL (0-10); Glucose 99 mg/dL (74-106); MAGNESIUM 2.2 mg/dL (1.6-2.3); Potassium 3.9 mmol/L (3.5-5.1); SALICYLATE < 1.0 mg/dL (2-20); SGOT/AST 44 U/L (14-36); SGPT/ALT 62 U/L (0-35); SODIUM 135 mmol/L (137-145); Total Protein 6.9 g/dL (6.3-8.2)
[2023-10-28 06:39] LABS: HCG SERUM TEST NEGATIVE (NEGATIVE)
[2023-10-28] MEDS ORDERED: Sodium Chloride 0.9% 1000 ML 1,000 ML IV STA (07:06)
[2023-10-28] MEDS ORDERED: Ativan 2 MG/1 ML VIAL IV ONE (07:06)
[2023-10-28] MEDS ORDERED: Ativan 1 MG PO ONE (07:30)
[2023-10-28] MEDS ORDERED: Ativan 1 MG ONE (07:31)
[2023-10-28 08:14] LABS: Amphetamine,Urine NEGATIVE (NEGATIVE); Barbiturate,Urine NEGATIVE (NEGATIVE); Benzodiazepine,Urine NEGATIVE (NEGATIVE); Cocaine,Urine NEGATIVE (NEGATIVE); Methadone,Urine NEGATIVE (NEGATIVE); Opiate,Urine NEGATIVE (NEGATIVE); PCP,Urine NEGATIVE (NEGATIVE); THC,Urine NEGATIVE (NEGATIVE)
[2023-10-28 09:02] VITALS: O2SAT 99
[2023-10-28] MEDS ORDERED: Zofran 4 MG/2 ML VIAL IV ONE (09:02)
[2023-10-28] MEDS ORDERED: Zofran 4 MG/2 ML VIAL ONE (09:04)
[2023-10-28] MEDS: Zofran 4 MG/2 ML VIAL IV ONE ×2 (09:09→09:10)
[2023-10-28 09:10] VITALS: BP 141/88; PULSE 112; RESP 21
== END 2023-10-28 09:59 | disposition short-term general hospital (02) ==
LOC: ED 05:38
DX: R47.81 Slurred speech (principal); T43.291A Poisoning by other antidepressants, accidental (unintentional), initial encounter; E78.5 Hyperlipidemia, unspecified; Z79.899 Other long term (current) drug therapy; Z72.0 Tobacco use
CPT/HCPCS: 36000; 36415; 80053; 80143; 80179; 80307; 82077; 82550; 83735; 84703; 85025; 93005; 93041; 94760; 96360; 96374; 96375; 99285; 99291; 99292; P9612; J2060; J2405; A9270-GY